=== PATIENT | female | born 1990 | race African-American/Black ===

== ENCOUNTER 2019-04-19 08:48 | Inpatient (IN) | payer MEDICAID ==
[~2019-04-19] VITALS: Ht 162.6 cm; Wt 83.9 kg
[2019-04-19] MEDS ORDERED: PNV1TABL50 PO (10:06)
[2019-04-19] MEDS ORDERED: LACTATED RINGERS 1,000 ML IV SCH (10:07)
[2019-04-19] MEDS ORDERED: MISOPROSTOL 100MCG TABLET VG SCH (10:15)
[2019-04-19] MEDS ORDERED: CARBOPROST TROMETHAMINE 250 MCG/ML AMPUL IM PRN (10:15)
[2019-04-19] MEDS ORDERED: MINERAL OIL 30ML BOTTLE PO ONE (10:15)
[2019-04-19] MEDS ORDERED: METHYLERGONOVINE MALEATE 0.2 MG/ML IM PRN (10:15)
[2019-04-19] MEDS ORDERED: NALOXONE HCL 0.4 MG/ML 1ML VIAL IM PRN (10:15)
[2019-04-19] MEDS ORDERED: LIDOCAINE HCL 1% 20ML VIAL (Pyxis) INJ INFIL SCH (10:15)
[2019-04-19 11:29] LABS: BASOPHILS % 0.3 % (0.0-2.0); EOSINOPHILS % 0.9 % (0.0-5.0); HEMATOCRIT. 36.3 % (36.0-48.0); HEMOGLOBIN. 12.4 g/dL (12.0-16.0); LYMPHOCYTES % 18.6 % (20.0-50.0); MEAN CORPUSCULAR HEMOGLOBIN 30.8 pg (28.0-32.0); MEAN PLATELET VOLUME 9.2 fl (7.4-10.4); MONOCYTES % 6.4 % (2.0-8.0); NEUTROPHILS % 73.8 % (40.0-76.0); PLATELET 213 x1000/uL (130-400); RED BLOOD CELL COUNT 4.03 mill/uL (4.2-5.4)
[2019-04-19 11:30] LABS: CLARITY URINE CLEAR (CLEAR); COLOR URINE YELLOW (YELLOW); KETONES URINE NEGATIVE (NEGATIVE); LEUKOCYTE ESTERASE URINE NEGATIVE (NEGATIVE); NITRITE URINE NEGATIVE (NEGATIVE); OCCULT BLOOD URINE TRACE (NEGATIVE); PROTEIN URINE NEGATIVE (NEGATIVE); SPECIFIC GRAVITY URINE 1.017 (1.005-1.030); UROBILINOGEN URINE 0.2 E.U./dL (0.2-1.0)
[2019-04-19 11:57] LABS: *BARBITURATES SCREEN URINE NEGATIVE (NEGATIVE)
[2019-04-19 11:58] LABS: *AMPHETAMINES SCREEN URINE NEGATIVE (NEGATIVE); *BENZODIAZEPINES SCREEN URINE NEGATIVE (NEGATIVE); *COCAINE SCREEN URINE NEGATIVE (NEGATIVE); METHADONE URINE SCREEN NEGATIVE (NEGATIVE); OPIATES URINE SCREEN NEGATIVE (NEGATIVE); PHENCYCLIDINE URINE SCREEN NEGATIVE (NEGATIVE)
[2019-04-19 11:59] LABS: CANNABINOID URINE SCREEN NEGATIVE (NEGATIVE)
[2019-04-19 13:25] LABS: HEPATITIS B SURFACE ANTIGEN NEGATIVE
[2019-04-19] MEDS ORDERED: ROPIVACAINE HCL/PF EPIDURAL 200 ML EPI SCH (14:30)
[2019-04-19] MEDS: LACTATED RINGERS 1,000 ML IV SCH ×2 (14:51→23:05)
[2019-04-19] MEDS: DEXT 5%/LR + PITOCIN 20UNITS/L 1,000 ML IV SCH (16:48)
[2019-04-19] MEDS: BUTORPHANOL TARTRATE 2 MG/ML VIAL IV PRN (21:11)
[2019-04-20] MEDS: BUTORPHANOL TARTRATE 2 MG/ML VIAL IV PRN (02:47)
[2019-04-20] MEDS: LACTATED RINGERS 1,000 ML IV SCH ×3 (10:21→21:07)
[2019-04-20] MEDS ORDERED: FENTANYL CITRATE/PF 50MCG/ML 2ML VIAL ONE (15:14)
[2019-04-20] MEDS ORDERED: BUPIVACAINE HCL/PF 0.25% (2.5MG/ML) 10ML ONE (15:15)
[2019-04-20] MEDS ORDERED: ROPIVACAINE HCL 10MG/ML 20 ML VIAL EPI ONE (15:30)
[2019-04-20] MEDS ORDERED: ROPIVACAINE HCL/PF EPIDURAL 200 ML EPI PRN (15:30)
[2019-04-20] MEDS ORDERED: ACETAMINOPHEN WITH CODEINE 300/30MG TABLET PO PRN (23:15)
[2019-04-20] MEDS ORDERED: BISACODYL 10MG SUPP PR PRN (23:15)
[2019-04-20] MEDS ORDERED: LANOLIN OINT 7GM TUBE TOP PRN (23:15)
[2019-04-20] MEDS ORDERED: IBUPROFEN 400MG TABLET PO PRN (23:15)
[2019-04-20] MEDS ORDERED: BENZOCAINE/LANOLIN/ALOE VERA SPRAY TOP PRN (23:15)
[2019-04-20] MEDS ORDERED: DEXT 5%/LR + PITOCIN 20UNITS/L 1,000 ML IV SCH (23:15)
[2019-04-20] MEDS ORDERED: GLYCERIN/WITCH HAZEL LEAF MEDICATED PAD TOP PRN (23:15)
[2019-04-20] MEDS: DEXT 5%/LR + PITOCIN 20UNITS/L 1,000 ML IV SCH (23:16)
[2019-04-20] MEDS ORDERED: HEMORRHOIDAL SUPP PR PRN (23:30)
[2019-04-21 01:50] VITALS: BP 111/70
[2019-04-21] MEDS: ACETAMINOPHEN WITH CODEINE 300/30MG TABLET PO PRN ×2 (02:33→05:25)
[2019-04-21 04:00] VITALS: BP 97/51
[2019-04-21] MEDS: SIMETHICONE 80MG TABLET CHEW PO SCH ×2 (08:00→21:00)
[2019-04-21] MEDS ORDERED: PENICILLIN G BENZATHINE 2,400,000 UNITS/4ML SYR IM NR (09:00)
[2019-04-21 09:12] LABS: BASOPHILS % 0.2 % (0.0-2.0); EOSINOPHILS % 0.4 % (0.0-5.0); HEMATOCRIT. 34.5 % (36.0-48.0); HEMOGLOBIN. 11.5 g/dL (12.0-16.0); LYMPHOCYTES % 9.4 % (20.0-50.0); MEAN CORPUSCULAR HEMOGLOBIN 29.8 pg (28.0-32.0); MEAN CORPUSCULAR VOLUME 89.5 fL (81.0-99.0); MEAN PLATELET VOLUME 9.4 fl (7.4-10.4); MONOCYTES % 7.4 % (2.0-8.0); NEUTROPHILS % 82.6 % (40.0-76.0); PLATELET 238 x1000/uL (130-400); RED BLOOD CELL COUNT 3.86 mill/uL (4.2-5.4); RED CELL DISTRIBUTION WIDTH 13.7 % (11.6-14.6)
[2019-04-21] MEDS: FERROUS SULFATE 325MG TABLET PO SCH ×2 (12:26→17:21)
[2019-04-21] MEDS: PRENATAL VIT/FE FUMARATE/FA TABLET PO SCH (12:26)
[2019-04-21 12:58] VITALS: BP 95/65
[2019-04-21 17:26] VITALS: BP 96/65
[2019-04-21 19:30] VITALS: BP 107/71
[2019-04-21] MEDS: MAGNESIUM/ALUMINUM HYDROXIDE/SIMETHICONE 30ML UDC PO SCH (21:00)
[2019-04-21] MEDS ORDERED: DOCUSATE SODIUM 100MG CAPSULE PO SCH (21:00)
[2019-04-22] MEDS: ACETAMINOPHEN WITH CODEINE 300/30MG TABLET PO PRN ×2 (02:31→10:24)
[2019-04-22 04:00] VITALS: BP 94/53
[2019-04-22 08:00] VITALS: BP 100/64
[2019-04-22 08:41] LABS: BASOPHILS % 0.4 % (0.0-2.0); EOSINOPHILS % 1.7 % (0.0-5.0); HEMATOCRIT. 34.7 % (36.0-48.0); HEMOGLOBIN. 11.6 g/dL (12.0-16.0); LYMPHOCYTES % 20.7 % (20.0-50.0); MEAN CORPUSCULAR HEMOGLOBIN 30.1 pg (28.0-32.0); MEAN CORPUSCULAR VOLUME 89.8 fL (81.0-99.0); MEAN PLATELET VOLUME 8.9 fl (7.4-10.4); MONOCYTES % 5.4 % (2.0-8.0); NEUTROPHILS % 71.8 % (40.0-76.0); PLATELET 254 x1000/uL (130-400); RED BLOOD CELL COUNT 3.86 mill/uL (4.2-5.4); RED CELL DISTRIBUTION WIDTH 13.8 % (11.6-14.6)
[2019-04-22] MEDS: SIMETHICONE 80MG TABLET CHEW PO SCH (10:23)
[2019-04-22] MEDS: PRENATAL VIT/FE FUMARATE/FA TABLET PO SCH (10:23)
[2019-04-22] MEDS: MAGNESIUM/ALUMINUM HYDROXIDE/SIMETHICONE 30ML UDC PO SCH (10:23)
[2019-04-22] MEDS: FERROUS SULFATE 325MG TABLET PO SCH (10:23)
== END 2019-04-22 11:00 | disposition home or self-care (01) | DRG 560 ==
LOC: 8 EST LDRP 08:48 → OBSVTOIN 08:48 → 8EST 04-21 01:24
PROVIDERS: ADMIT Obstetrics & Gynecology; ATTEND Obstetrics & Gynecology
PROC: 10E0XZZ Delivery of Products of Conception, External Approach (ICD-10-PCS; principal; 2019-04-20)
PROC: 0HQ9XZZ Repair Perineum Skin, External Approach (ICD-10-PCS; 2019-04-20)
PROC: 3E0R3BZ Introduction of Anesthetic Agent into Spinal Canal, Percutaneous Approach (ICD-10-PCS; 2019-04-20)
PROC: 00HU33Z Insertion of Infusion Device into Spinal Canal, Percutaneous Approach (ICD-10-PCS; 2019-04-20)
DX: O98.12 Syphilis complicating childbirth (principal); O99.13 Other diseases of the blood and blood-forming organs and certain disorders involving the immune mechanism complicating the puerperium; O70.0 First degree perineal laceration during delivery; D72.829 Elevated white blood cell count, unspecified; Z37.0 Single live birth; Z3A.39 39 weeks gestation of pregnancy
CPT/HCPCS: 36415; 76805; 80305; 81003; 86592; 86593; 86703; 86762; 86780; 86850; 86900; 87340; G0378; J0561; J0595; J2590; J2795; J3010; J3490; J7120

== ENCOUNTER 2021-05-02 19:53 | Emergency (ER) | payer MEDICAID ==
[~2021-05-02] VITALS: Ht 170.2 cm; Wt 81.0 kg
[~2021-05-02 19:53] MED LIST: PNV1TABL50 PO
[2021-05-02 20:04] VITALS: BP 128/88
[2021-05-02] MEDS ORDERED: ONDANSETRON 4MG ODT PO ONE (23:00)
[2021-05-02] MEDS ORDERED: FAMOTIDINE 20MG TABLET PO ONE (23:00)
[2021-05-02 23:15] LABS: CLARITY URINE CLEAR (CLEAR); COLOR URINE YELLOW (YELLOW); KETONES URINE NEGATIVE (NEGATIVE); LEUKOCYTE ESTERASE URINE TRACE (NEGATIVE); NITRITE URINE NEGATIVE (NEGATIVE); OCCULT BLOOD URINE 2+ (NEGATIVE); PH URINE 6.5 (4.5-8.0); PROTEIN URINE TRACE (NEGATIVE); SPECIFIC GRAVITY URINE 1.021 (1.005-1.030); UROBILINOGEN URINE 0.2 E.U./dL (0.2-1.0)
== END 2021-05-03 00:47 | disposition home or self-care (01) ==
LOC: ER 19:53
DX: R07.89 Other chest pain (principal)
CPT/HCPCS: 71045; 81003; 81025; 93005; 99285; Q0162

== ENCOUNTER 2024-04-01 06:07 | Emergency (ER) | payer MEDICAID, OTHER ==
[~2024-04-01] VITALS: Ht 162.6 cm; Wt 78.0 kg
[2024-04-01 06:11] VITALS: O2SAT 98
[2024-04-01] MEDS: SODIUM CHLORIDE 0.9% 1,000 ML IV ONE (06:31)
[2024-04-01] MEDS: PIPERACILLIN/TAZO 3.375G/50ML 50 ML IV ONE (06:34)
[2024-04-01 06:52] LABS: BASOPHILS % 0.4 % (0.0-2.0); EOSINOPHILS % 1.5 % (0.0-5.0); HEMATOCRIT. 34.8 % (36.0-48.0); HEMOGLOBIN. 11.7 g/dL (12.0-16.0); LYMPHOCYTES % 11.8 % (20.0-50.0); MEAN CORPUSCULAR HEMOGLOBIN 29.3 pg (28.0-32.0); MEAN CORPUSCULAR HGB CONC 33.7 g/dL (31.0-37.0); MEAN PLATELET VOLUME 8.7 fl (7.4-10.4); MONOCYTES % 8.8 % (2.0-8.0); NEUTROPHILS % 77.5 % (40.0-76.0); PLATELET 364 x1000/uL (130-400); RED CELL DISTRIBUTION WIDTH 15.6 % (11.6-14.6); WHITE BLOOD COUNT 9.4 x1000/uL (4.5-11.0)
[2024-04-01 07:00] LABS: INR 1.1; PROTHROMBIN TIME 11.9 sec (9.6-11.0)
[2024-04-01 07:01] LABS: CARBON DIOXIDE 24 mEq/L (21-32); CHLORIDE 105 mEq/L (98-107); POTASSIUM 3.5 mEq/L (3.5-5.1); SODIUM 137 mEq/L (136-145)
[2024-04-01 07:02] LABS: CALCIUM 8.9 mg/dL (8.7-10.4)
[2024-04-01] MEDS: SODIUM CHLORIDE 0.9% 1000ML BAG (SEPSIS BOLUS) IV ONE (07:04)
[2024-04-01 07:06] LABS: GLUCOSE 102 mg/dL (70-105)
[2024-04-01 07:07] LABS: CREATININE 0.8 mg/dL (0.6-1.0)
[2024-04-01 07:08] LABS: ALANINE AMINOTRANSFERASE 13 IU/L (10-49); ALBUMIN 4.3 g/dL (3.2-4.8); ASPARTATE AMINOTRANSFERASE 15 IU/L (<34)
[2024-04-01 07:09] LABS: BILIRUBIN DIRECT 0.1 mg/dL (<=3.0); BILIRUBIN TOTAL 0.4 mg/dL (0.1-1.0); PROTEIN TOTAL 7.6 g/dL (6.0-8.3)
[2024-04-01 07:15] LABS: HCG SCREEN NEGATIVE; UREA NITROGEN BLOOD < 5 mg/dL (9-23)
[2024-04-01 07:16] LABS: TROPONIN I HIGH SENSITIVITY < 4 ng/L (3.0-34)
[2024-04-01] MEDS: VANCOMYCIN 1G PREMIX 200 ML IV ONE (07:49)
[2024-04-01 08:18] VITALS: TEMP 37.28076
[2024-04-01 08:50] LABS: CLARITY URINE CLEAR (CLEAR); COLOR URINE YELLOW (YELLOW); GLUCOSE URINE NEGATIVE (NEGATIVE); KETONES URINE NEGATIVE (NEGATIVE); LEUKOCYTE ESTERASE URINE NEGATIVE (NEGATIVE); NITRITE URINE NEGATIVE (NEGATIVE); OCCULT BLOOD URINE NEGATIVE (NEGATIVE); PH URINE 6.5 (4.5-8.0); PROTEIN URINE NEGATIVE (NEGATIVE); SPECIFIC GRAVITY URINE 1.015 (1.005-1.030); UROBILINOGEN URINE 0.2 E.U./dL (0.2-1.0)
[2024-04-01 11:22] VITALS: BP 103/70; PULSE 100; RESP 20; O2SAT 100
== END 2024-04-01 11:43 | disposition left against medical advice (07) ==
LOC: ER 06:07 → CANBEDREQ 10:18 → ER 11:43
DX: A41.9 Sepsis, unspecified organism (principal); R65.20 Severe sepsis without septic shock; Z20.822 Contact with and (suspected) exposure to COVID-19
CPT/HCPCS: 80076; 80048; 81003; 84703; 83605; 85025; 85610; 87040; 87086; 84484; 87804 ×2; 36415; 84145; 71045; 93005; 96367; 96365; 99291; 87426; J2543; J3370; J7030; Z7610 ×4; 99285

== ENCOUNTER 2025-05-14 22:45 | Emergency (ER) | payer OTHER ==
[~2025-05-14] VITALS: Ht 162.6 cm; Wt 82.7 kg
[2025-05-14 22:47] VITALS: O2SAT 100
[2025-05-14 22:48] VITALS: TEMP 36.8; O2SAT 100
[2025-05-15 01:56] VITALS: BP 107/77; PULSE 75; RESP 15
[2025-05-15] MEDS: KETOROLAC 15MG/ML VIAL IM ONE (01:56)
[2025-05-15] MEDS: LIDOCAINE 5% PATCH TOP SCH (01:56)
[2025-05-15 02:02] LABS: BASOPHILS % 1.1 % (0.0-2.0); EOSINOPHILS % 3.8 % (0.0-5.0); HEMATOCRIT. 32.0 % (36.0-48.0); HEMOGLOBIN. 10.4 g/dL (12.0-16.0); LYMPHOCYTES % 33.3 % (20.0-50.0); MEAN PLATELET VOLUME 8.6 fl (7.4-10.4); MONOCYTES % 6.9 % (2.0-8.0); NEUTROPHILS % 54.9 % (40.0-76.0); PLATELET 380 x1000/uL (130-400); RED BLOOD CELL COUNT 3.97 mill/uL (4.2-5.4); RED CELL DISTRIBUTION WIDTH 16.1 % (11.6-14.6)
[2025-05-15 02:12] LABS: CREATININE 0.8 mg/dL (0.6-1.0)
[2025-05-15 02:13] LABS: UREA NITROGEN BLOOD 7 mg/dL (9-23)
[2025-05-15 02:14] LABS: TROPONIN I HIGH SENSITIVITY < 4 ng/L (3.0-34)
[2025-05-15] MEDS: ACETAMINOPHEN 325MG TABLET PO ONE (02:15)
[2025-05-15] MEDS ORDERED: NAPR-1176 MT (02:26)
[2025-05-15] MEDS ORDERED: LIDO-53 TP (02:26)
[2025-05-15 03:12] LABS: HCG SCREEN NEGATIVE
== END 2025-05-15 02:39 | disposition home or self-care (01) ==
LOC: ER 22:45
DX: R07.89 Other chest pain (principal); M54.50 Low back pain, unspecified; Z79.1 Long term (current) use of non-steroidal anti-inflammatories (NSAID); Z79.899 Other long term (current) drug therapy
CPT/HCPCS: 36415; 71045; 80048; 84484; 84703; 85025; 93005; 99285; J1885